=== PATIENT | male | born 1975 | race American Indian/Alaskan Native ===

== ENCOUNTER 2016-10-17 17:50 | Emergency (ER) | payer OTHER ==
[2016-10-17 19:06] VITALS: BP 117/70
[2016-10-17] MEDS ORDERED: Tetracaine HCl/PF 0.5% 4 ML Bottle EYERT ONE (19:08)
[2016-10-17] MEDS ORDERED: Fluorescein 1 MG Ophth Strip EYERT ONE (19:09)
--- NOTE | 2016-10-17 19:53 | EDM.PDOC ---
ED HPI GENERAL MEDICAL PROBLEM - General Chief Complaint: Eye Problems Stated Complaint: EYE PROBLEMS, [id number] Time Seen by Provider: 10/17/16 19:47 Source of Information: Reports: Patient History Limitations: Reports: No Limitations - History of Present Illness INITIAL COMMENTS - FREE TEXT/NARRATIVE: got something into eye earlier, did try to flush it out with water but still feels something. Right Eye Pain Score (Numeric/FACES): 4 - Related Data Allergies Allergy/AdvReac Type Severity Reaction Status Date / Time No Known Allergies Allergy Verified 10/17/16 19:07 Home Meds: Home Meds . [No Known Home Meds] 10/17/16 [History] Past Medical History - Past Health History Medical/Surgical History: Denies Medical/Surgical History Social & Family History - Family History Family Medical History: Noncontributory - Tobacco Use Smoking Status *Q: Never Smoker Second Hand Smoke Exposure: No - Recreational Drug Use Recreational Drug Use: No ED ROS GENERAL - Review of Systems Review Of Systems: ROS reveals no pertinent complaints other than HPI. ED EXAM GENERAL W FULL EYE - Physical Exam Exam: See Below Exam Limited By: No Limitations General Appearance: Alert, WD/WN, No Apparent Distress Eye Exam: Right Eye: Conjunctival Injection, Corneal Abrasion Eyelids: Bilateral: Normal Appearance Conjunctiva & Sclera: Right: Injected, Other (abrasion lateral upper via fluorsceine) Cornea Exam: Right: Normal Appearance, Foreign Body (none noted), Examined with Flourescein Extraocular Movements: Bilateral: Intact Pupillary Size: Bilateral: 4 mm Pupillary Reaction: Bilateral: Brisk Anterior Chamber: Bilateral: Normal Appearance Ears: Hearing Grossly Normal Throat/Mouth: Normal Voice, No Airway Compromise Head: Atraumatic Neck: Non-Tender, Full Range of Motion Respiratory/Chest: No Respiratory Distress Cardiovascular: Regular Rate, Rhythm GI/Abdominal: Soft, Non-Tender Neurological: Alert, Oriented, Normal Cognition, Normal Gait, No Motor/Sensory Deficits Psychiatric: Normal Affect, Normal Mood Skin Exam: Warm, Dry Lymphatic: No Adenopathy Course - Vital Signs Last Recorded V/S: Last Vital Signs Temp 36.0 C 10/17/16 19:01 Pulse 78 10/17/16 19:01 Resp 14 10/17/16 19:01 BP 117/70 10/17/16 19:01 Pulse Ox 98 10/17/16 19:01 - Orders/Labs/Meds Meds: Medications Discontinued Medications Generic Name Dose Route Start Last Admin Trade Name Juanjo PRN Reason Stop Dose Admin Fluorescein Sodium 1 mg 10/17/16 19:09 10/17/16 19:17 Ful-Tayler EYERT 10/17/16 19:10 1 mg ONETIME ONE Administration Tetracaine HCl 1 ml 10/17/16 19:08 10/17/16 19:15 Tetracaine 0.5% Steri-Unit Bessie EYERT 10/17/16 19:09 2 drop ASDIRECTED ONE Administration Departure - Departure Time of Disposition: 19:50 Disposition: Home, Self-Care 01 Condition: good Clinical Impression: Abrasion of conjunctiva, right Qualifiers: Encounter type: initial encounter Qualified Code(s): S05.01XA - Injury of conjunctiva and corneal abrasion without foreign body, right eye, initial encounter - Discharge Information Forms: ED Department Discharge Additional Instructions: 1) don't rub eye 2) keep eye clean 3) follow up at clinic or recheck if problem persists rx togo: gentamycin eye drops qid x 5 days
[2016-10-17] MEDS ORDERED: Gentamicin 0.3% Ophth Soln 5 ML Bottle EYERT ONE (20:06)
[2016-10-17] MEDS ORDERED: Gentamicin 0.3% Ophth Soln 5 ML Bottle ONE (20:06)
== END 2016-10-17 20:10 | disposition home or self-care (01) ==
LOC: DL.ED 17:50
DX: S05.01XA Injury of conjunctiva and corneal abrasion without foreign body, right eye, initial encounter (principal); X58.XXXA Exposure to other specified factors, initial encounter
CPT/HCPCS: 99283; A9270

== ENCOUNTER → 2022-03-23 | Day surgery (SDC) | payer OTHER ==
[~2022-03-23] MED LIST: Midazolam 1 MG/ML 2 ML SDV IV ONE; Midazolam 1 MG/ML 2 ML SDV ONE; Sodium Chloride 0.9% 10 ML Syringe FLUSH PRN; Sodium Chloride 0.9% 10 ML Syringe FLUSH SCH; fentaNYL 100 MCG/2 ML SDV IV ONE; fentaNYL 100 MCG/2 ML SDV ONE
[2022-03-23] MEDS: Dextrose 5%-0.45% NaCl 1,000 ML IV SCH (06:48)
[2022-03-23] MEDS: fentaNYL 100 MCG/2 ML SDV IV ONE ×3 (07:38→07:46)
[2022-03-23] MEDS: Midazolam 1 MG/ML 2 ML SDV IV ONE ×5 (07:40→07:46)
[2022-03-23 09:09] VITALS: BP 102/69; PULSE 64
== END ==
LOC: DL.ENDO 06:29
PROVIDERS: ATTEND Internal Medicine Gastroenterology
DX: Z12.11 Encounter for screening for malignant neoplasm of colon (principal); D72.819 Decreased white blood cell count, unspecified; D69.6 Thrombocytopenia, unspecified; M50.90 Cervical disc disorder, unspecified, unspecified cervical region; G83.89 Other specified paralytic syndromes; M77.31 Calcaneal spur, right foot; N52.9 Male erectile dysfunction, unspecified; Z90.49 Acquired absence of other specified parts of digestive tract; Z79.82 Long term (current) use of aspirin
CPT/HCPCS: 45378; J2250; J3010; J7042